=== PATIENT | male | born 1985 | race Caucasian/White ===

== ENCOUNTER → 2021-12-27 11:06 | Outpatient (BNVA) | payer BC, SELFPAY | PROVIDERS: Family Provider Family Medicine; Visit Provider Family Medicine | DX: Z76.89 Persons encountering health services in other specified circumstances (principal); Z71.3 Dietary counseling and surveillance; Z68.42 Body mass index [BMI] 45.0-49.9, adult; Z13.6 Encounter for screening for cardiovascular disorders; Z13.220 Encounter for screening for lipoid disorders | CPT/HCPCS: 80053; 80061; 84443; 85025 ==

== ENCOUNTER 2022-07-07 06:00 | Outpatient (RCR) | payer OTHER, SELFPAY | END 2022-07-13 23:59 | disposition home or self-care (01) | LOC: SPT 06:00 | PROVIDERS: PCP Family Medicine; Visit Provider Nurse Practitioner | DX: M25.561 Pain in right knee (principal) | CPT/HCPCS: 97161 ==

== ENCOUNTER → 2023-07-05 08:20 | Outpatient (BNVA) | payer BC, SELFPAY | PROVIDERS: PCP Family Medicine; Visit Provider Family Medicine | DX: Z13.220 Encounter for screening for lipoid disorders (principal); Z13.6 Encounter for screening for cardiovascular disorders; Z76.89 Persons encountering health services in other specified circumstances; Z71.3 Dietary counseling and surveillance; F90.9 Attention-deficit hyperactivity disorder, unspecified type; Z68.42 Body mass index [BMI] 45.0-49.9, adult | CPT/HCPCS: 80053; 80061; 83036; 84443; 85025 ==

== ENCOUNTER 2024-05-03 08:11 | Outpatient (CLI) | payer OTHER, SELFPAY ==
--- NOTE | 2024-05-03 08:15 | US_ITS ---
WS: [id number] Exam: US abdomen limited 12068 Date/Time of Exam: 05/03/2024 8:43 AM Reason For Exam: RUQ ELEVATED ENZYMES The liver is echodense most likely indicating hepatic steatosis. The liver measures 17 cm in greatest dimension. No intra or extrahepatic ductal dilatation noted. Common bile duct measures 4 mm in great est diameter. The IVC shows phasic flow. The abdominal aorta is normal in caliber. Gallbladder is unr emarkable. Normal-appearing RIGHT kidney measures 13.3 x 6.7 x 7 cm. Cortical thickness was 1.6 cm. US/US abdomen limited [id number] IMPRESSION: 1. Echodense liver most likely indicating hepatic steatosis. 2. No mass, free fluid or other significant finding in the RIGHT abdomen.
== END 2024-05-03 08:12 | disposition home or self-care (01) ==
LOC: RAD 08:11
PROVIDERS: PCP Family Medicine; Visit Provider Nurse Practitioner
DX: Z01.89 Encounter for other specified special examinations (principal); K76.89 Other specified diseases of liver
CPT/HCPCS: 76705